=== PATIENT | male | born 1970 ===

== ENCOUNTER 2024-04-06 06:44 | Day surgery (SDC) | payer BC ==
[~2024-04-06] VITALS: Ht 182.9 cm; Wt 81.9 kg
[2024-04-06] MEDS ORDERED: Lactated Ringer's 1,000 ML IV ONE ×2 (07:36→08:30)
[2024-04-06] MEDS ORDERED: propofoL 50 ML IV ONE (07:36)
== END 2024-04-06 09:47 | disposition home or self-care (01) ==
LOC: ORSCSDS 06:44
PROVIDERS: Surgery
PROC: 0DJD8ZZ Inspection of Lower Intestinal Tract, Via Natural or Artificial Opening Endoscopic (ICD-10-PCS; principal; 2024-04-06 08:30)
DX: Z12.11 Encounter for screening for malignant neoplasm of colon (principal); K59.04 Chronic idiopathic constipation
CPT/HCPCS: J2704; J7120